=== PATIENT | male | born 1990 | race Caucasian/White ===

== ENCOUNTER 2024-03-18 14:32 | Emergency (ER) | payer BC ==
[2024-03-18 14:52] VITALS: BP 147/99; PULSE 107
[2024-03-18] MEDS: Bacitracin/Neomycin/Polymyxin B Oint 0.9 GM U/D Packet TOP ONE (15:24)
[2024-03-18] MEDS: Diphtheria,Pertussis(Acell),Tetanus Vaccine 0.5 ML Syringe IM ONE (15:25)
== END 2024-03-18 15:28 | disposition home or self-care (01) ==
LOC: KA.ED 14:32
DX: S69.91XA Unspecified injury of right wrist, hand and finger(s), initial encounter (principal); Z23 Encounter for immunization; W23.1XXA Caught, crushed, jammed, or pinched between stationary objects, initial encounter
CPT/HCPCS: 73140-F7; 90471; 90715; 99283-25